=== PATIENT | female | born 1980 | race Caucasian/White ===

== ENCOUNTER 2016-09-15 10:27 | Inpatient (IN) | payer OTHER ==
[~2016-09-15] VITALS: Ht 172.7 cm; Wt 81.9 kg
--- NOTE | ~2016-09-15 | OR ---
PATIENT'S NAME: FRANCE PENNINGTON [facility] AGE: 36 Y [address] ROOM: [place] [id number] LOCATION: GOBS ADMIT DATE: 09/15/2016 OR/Procedure Report DISCHARGE DATE: FAMILY PHYSICIAN: Ganga Trotter MD ATTENDING PHYSICIAN: Nadia Brady SURGEON: Nadia Brady MD JAVA LEAD ENGINEER: DATE OF PROCEDURE: 09/15/2016 This is a 36-year-old, 3, para 2-0-0-2, who presents with an EDC of 09/19/2016. care was complicated by advanced maternal age. She had a normal quad screen. She presents today at 39 weeks with ruptured membranes. Her water broke at 0230 hours this morning and was pink tinged. She presents to the office hours later and ruptured membranes were documented and she was 3, 75%, -1, and vertex. Group B strep is negative. She is brought to Labor and Delivery. heart tones are reassuring. A labor epidural was placed and Pitocin was begun. Pitocin reached a maximum of 13 milliunits per minute. She progressed on to complete. She pushed and delivered the baby in the OP presentation. It was in the LOP position. Shoulders and body easily delivered. The baby girl was placed on maternal abdomen. Her cord was doubly clamped and cut. She stays with mother until after delivery. Three-vessel cord was noted. The cord blood samples collected. Placenta delivered spontaneously intact. Cervix and vagina are intact or the midline episiotomy that I cut before the delivery of the head was repaired with 2-0 chromic. The patient is doing well. Sponge and needle counts are correct. Baby girl weighs 9 pounds 0 ounces. was 9. MD BECKY MTZ/rhonda /[id number] d: 09/16/16 0010 t: 09/20/16 0402, OPERATIVE SUMMARY
[2016-09-15] MEDS ORDERED: PRENATAL 1+1)(P1 TAB PO (11:03)
[2016-09-15 11:06] LABS: BASOPHIL % 0.2 %; EOSINOPHIL % 0.2 %; HEMATOCRIT 34.8 % (33.0-46.0); HEMOGLOBIN 11.8 g/dL (11.0-15.0); IMMATURE GRANULOCYTE # 0.1 K/uL (0.0-0.3); IMMATURE GRANULOCYTE % 0.6 %; LYMPHOCYTE # 0.9 K/uL (0.8-4.0); LYMPHOCYTE % 9.1 %; MCH 30.2 pg (27.0-34.0); MCHC 33.9 gm/dL (32.0-36.5); MONOCYTE # 0.7 K/uL (0.0-1.0); MONOCYTE % 7.3 %; MPV 9.8 fl (9.4-12.4); NEUTROPHIL % 82.6 %; NRBC % 0 /100WBC (0-0.00); PLATELET COUNT 279 K/uL (150-450); RBC 3.91 M/uL (3.50-5.50); WBC 9.7 K/uL (4.0-11.0)
[2016-09-16 04:41] LABS: BASOPHIL % 0.3 %; EOSINOPHIL # 0.1 K/uL (0.0-0.5); EOSINOPHIL % 0.5 %; HEMATOCRIT 32.6 % (33.0-46.0); HEMOGLOBIN 10.7 g/dL (11.0-15.0); IMMATURE GRANULOCYTE # 0.1 K/uL (0.0-0.3); IMMATURE GRANULOCYTE % 0.6 %; LYMPHOCYTE # 1.3 K/uL (0.8-4.0); LYMPHOCYTE % 11.6 %; MCH 29.6 pg (27.0-34.0); MCHC 32.8 gm/dL (32.0-36.5); MCV 90.1 fl (83.0-98.0); MONOCYTE # 0.9 K/uL (0.0-1.0); MONOCYTE % 8.3 %; MPV 9.4 fl (9.4-12.4); NEUTROPHIL # (ANC) 8.7 K/uL (1.8-7.8); NEUTROPHIL % 78.7 %; NRBC % 0 /100WBC (0-0.00); PLATELET COUNT 254 K/uL (150-450); RBC 3.62 M/uL (3.50-5.50); RDW-CV 13.9 % (11.9-14.6); WBC 11.1 K/uL (4.0-11.0)
[2016-09-16] MEDS ORDERED: MOTRIN800 MG PO (09:17)
[2016-09-16] MEDS ORDERED: PERCOCET 5-3251 EACH PO (09:17)
== END 2016-09-16 21:45 | disposition disaster alternative care site (69) | DRG 775 ==
LOC: GOBS 10:27
PROVIDERS: ADMIT Obstetrics & Gynecology
PROC: 10E0XZZ Delivery of Products of Conception, External Approach (ICD-10-PCS; principal; 2016-09-15)
PROC: 4A1HX4Z Monitoring of Products of Conception, Cardiac Electrical Activity, External Approach (ICD-10-PCS; principal; 2016-09-15)
PROC: 0W8NXZZ Division of Female Perineum, External Approach (ICD-10-PCS; principal; 2016-09-15)
DX: O80 Encounter for full-term uncomplicated delivery (principal); Z37.0 Single live birth; Z3A.39 39 weeks gestation of pregnancy
CPT/HCPCS: J2001; J2590; J3010; J7120